=== PATIENT | male | born 1995 | race Caucasian/White ===

== ENCOUNTER 2019-07-16 09:17 | Emergency (ER) | payer BC, OTHER ==
[~2019-07-16] VITALS: Ht 172.7 cm; Wt 72.6 kg
[2019-07-16 09:25] VITALS: BP 114/77
[2019-07-16] MEDS ORDERED: Bupivacaine 0.5% Inj 30 ml vial INJ ONE (09:30)
[2019-07-16] MEDS ORDERED: PENICILLIN V P500 MG ORAL (10:41)
[2019-07-16] MEDS ORDERED: IBUPROFEN600 MG ORAL (10:41)
[2019-07-16] MEDS ORDERED: Bacitracin Oint UD TOPIC ONE ×2 (10:43→10:45)
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
[2019-07-16 10:47] VITALS: BP 121/70
== END 2019-07-16 10:48 | disposition home or self-care (01) ==
LOC: EMR 09:32
DX: S01.511A Laceration without foreign body of lip, initial encounter (principal); Y04.2XXA Assault by strike against or bumped into by another person, initial encounter; Y92.9 Unspecified place or not applicable
CPT/HCPCS: 99282; J3490